=== PATIENT | male | born 1965 | race Caucasian/White ===

== ENCOUNTER 2018-04-18 10:00 | Day surgery (SDC) | payer BC ==
[~2018-04-18 10:00] MED LIST: Lactated Ringers 1,000 ML IV SCH
[2018-04-18] MEDS ORDERED: Propofol 200 MG/20 ML SDV ONE (10:44)
[2018-04-18] MEDS ORDERED: fentaNYL 100 MCG/2 ML SDV ONE (10:44)
--- NOTE | 2018-04-18 18:20 | OR ---
PREOPERATIVE DIAGNOSIS: Personal history of polyps, family history of colon cancer-sister. POSTOPERATIVE DIAGNOSIS: Normal colonoscopic exam. PROCEDURE PROPOSED/PROCEDURE DONE: Total flexible colonoscopy. INDICATIONS: This is a 53-year-old male who comes in for colonic surveillance due to a personal history of polyps and also a family history of a sister with colon cancer as well as a grandparent. His last examination was 5 years ago. TECHNIQUE: The patient was brought to the endoscopy suite and placed in left lateral decubitus position. He was sedated per [employer]ILLING [employer]IST with propofol. The flexible video colonoscope was then passed transanally and under visualization, advanced to the cecum. Examination revealed a normal ascending, transverse, descending, sigmoid, and rectal colons. There was no evidence of any polyps, diverticulosis, colitis, or other abnormalities. The scope was then withdrawn. The patient tolerated procedure well. IMPRESSION: 1. Essentially normal colonoscopic exam. 2. Family history of colon cancer. 3. History of prior polyps. PLAN: The patient should continue with colonic surveillance every 5 years hereafter. SCM: 04/18/2018 11:35:09 MODL: 04/18/2018 18:11:44 /[id number]
== END 2018-04-18 12:45 | disposition home or self-care (01) ==
LOC: VM.SDS 10:00
PROVIDERS: ATTEND Surgery
DX: Z12.11 Encounter for screening for malignant neoplasm of colon (principal); J45.909 Unspecified asthma, uncomplicated; N52.9 Male erectile dysfunction, unspecified; E78.5 Hyperlipidemia, unspecified; E66.9 Obesity, unspecified; Z68.32 Body mass index [BMI] 32.0-32.9, adult; Z79.899 Other long term (current) drug therapy; Z86.010 Personal history of colon polyps; Z80.0 Family history of malignant neoplasm of digestive organs
CPT/HCPCS: 45378; J2704; J3010; J7120

== ENCOUNTER 2019-04-07 23:30 | Emergency (ER) | payer BC ==
[2019-04-07] MEDS ORDERED: Sodium Chloride 0.9% 10 ML Syringe FLUSH PRN (23:36)
[2019-04-07] MEDS ORDERED: Albuterol/Ipratropium 3.0-0.5 MG/3 ML Neb Soln NEB ONE (23:37)
[2019-04-07] MEDS ORDERED: methylPREDNISolone Sodium Succinate 125 MG/2 ML SDV IM ONE (23:37)
[2019-04-08] MEDS ORDERED: methylPREDNISolone Sodium Succinate 125 MG/2 ML SDV IVPUSH ONE
[2019-04-08 00:17] LABS: CHLORIDE,CL 105 mmol/L (98-107); SODIUM,NA 140 mmol/L (136-145)
[2019-04-08 00:19] LABS: ANION GAP 16.8 mmol/L (10-20)
--- NOTE | 2019-04-08 08:29 | CR ---
[id number] RAD/RAD Chest PA And Lateral EXAM: FRONTAL AND LATERAL CHEST INDICATION: Syncope and bradycardia. COMPARISON: July 01, 2008. DISCUSSION: The heart and lungs are normal in appearance. IMPRESSION: 1. Negative exam. Gunner Brenner MD 04/08/19 0827 Thank you for allowing us to participate in the care of your patient.
--- NOTE | 2019-04-08 08:31 | EDM.PDOC ---
ED HPI GENERAL MEDICAL PROBLEM - General Chief Complaint: Respiratory Problem Stated Complaint: Wheezing, coughing, asthma Time Seen by Provider: 04/07/19 23:35 Source of Information: Reports: Patient, RN Notes Reviewed History Limitations: Reports: No Limitations - History of Present Illness INITIAL COMMENTS - FREE TEXT/NARRATIVE: Pt. presents to ER with complaints of wheezing and chest tightness for the past several days. He states that he has a history of asthma and is currently out of his montelucast which he thinks caused an exacerbation. Pt. states that he has been using his albuterol inhaler approx. 4-6 times daily. Denies any fever or chills. He has had a cough, but it is non-productive. Denies any chest pain. No jaw, arm, neck or back pain. Denies any fever or chills. He states that he sometimes has asthma exacerbations and he needs a steroid. He is currently not on a inhaled corticosteroid or LABA and states that he does quite well with montelucast. Onset Date: 03/29/19 Location: Reports: Chest Improves with: Reports: Rest Worsens with: Reports: Movement Treatments PROGRAM REP: Reports: Home Treatments (inhaler) - Related Data Allergies Allergy/AdvReac Type Severity Reaction Status Date / Time No Known Allergies Allergy Verified 04/07/19 23:36 Home Meds: Home Meds Albuterol [Proventil HFA] 2 puff INH Q4H PRN 04/12/18 [History] Non-Formulary Medication [NF Drug] 50 - 100 mg PO ASDIRECTED PRN 04/12/18 [ History] Polyvinyl Alcohol/Povidone/Pf [Refresh Classic Eye Drops] 1 drop OP ASDIRECTED PRN 04/12/18 [History] Cetirizine HCl [Zyrtec] 10 mg PO DAILY 04/08/19 [History] Montelukast [Singulair] 10 mg PO BEDTIME 04/08/19 [History] Past Medical History Other Cardiovascular History: vasculogenic erectile dysfunction Respiratory History: Reports: Asthma Other Gastrointestinal History: family hx colon cancer Genitourinary History: Reports: None Musculoskeletal History: Reports: Fracture Other Musculoskeletal History: LEFT ARM FX 1989 Neurological History: Reports: None Psychiatric History: Reports: None Endocrine/Metabolic History: Reports: None Hematologic History: Reports: None Immunologic History: Reports: None Other Oncologic History: STRONG FX HX OF CANCER Dermatologic History: Reports: None - Past Surgical History Other HEENT Surgeries/Procedures: presbyopia Cardiovascular Surgical History: Reports: None Endocrine Surgical History: Reports: None Neurological Surgical History: Reports: None Musculoskeletal Surgical History: Reports: None Oncologic Surgical History: Reports: None ED ROS GENERAL - Review of Systems Review Of Systems: See Below Constitutional: Reports: No Symptoms. Denies: Fever, Chills, Malaise, Weakness , Fatigue HEENT: Reports: No Symptoms Respiratory: Reports: Shortness of Breath, Wheezing, Cough Cardiovascular: Reports: No Symptoms Endocrine: Reports: No Symptoms GI/Abdominal: Reports: No Symptoms : Reports: No Symptoms Musculoskeletal: Reports: No Symptoms Skin: Reports: No Symptoms Neurological: Reports: No Symptoms Psychiatric: Reports: No Symptoms Hematologic/Lymphatic: Reports: No Symptoms Immunologic: Reports: No Symptoms ED EXAM, GENERAL - Physical Exam Exam: See Below Exam Limited By: No Limitations General Appearance: Alert, WD/WN, No Apparent Distress Eye Exam: Bilateral Eye: Conjunctival Injection Throat/Mouth: Normal Inspection, Normal Lips, Normal Teeth, Normal Gums, Normal Oropharynx, Normal Voice, No Airway Compromise Head: Atraumatic, Normocephalic Neck: Normal Inspection, Supple, Non-Tender, Full Range of Motion Respiratory/Chest: Decreased Breath Sounds, Wheezing Cardiovascular: Normal Peripheral Pulses, Regular Rate, Rhythm, No Edema, No Gallop, No JVD, No Murmur, No Rub GI/Abdominal: Normal Bowel Sounds, Soft, Non-Tender, No Organomegaly, No Distention, No Mass (Male) Exam: Deferred Rectal (Males) Exam: Deferred Back Exam: Normal Inspection, Full Range of Motion Extremities: Normal Inspection, Normal Range of Motion, Non-Tender, No Pedal Edema, Normal Capillary Refill Neurological: Alert, Oriented, CN II-XII Intact, Normal Cognition, Normal Gait, Normal Reflexes, No Motor/Sensory Deficits Psychiatric: Normal Affect, Normal Mood Skin Exam: Warm, Dry, Intact, Normal Color, No Rash Lymphatic: No Adenopathy Course - Vital Signs Last Recorded V/S: Last Vital Signs Temp 36.6 C 04/07/19 23:30 Pulse 76 04/08/19 00:30 Resp 16 04/08/19 00:30 BP 147/93 H 04/07/19 23:30 Pulse Ox 97 04/08/19 00:30 - Orders/Labs/Meds Orders: Active Orders 24 hr Category Date Time Status RT Aerosol Therapy [RC] ASDIRECTED Care 04/07/19 23:37 Active Peripheral IV Insertion Adult [OM.PC] Routine Oth 04/07/19 23:37 Ordered Labs: Laboratory Tests 04/07/19 04/07/19 04/07/19 Range/Units 23:45 23:45 23:45 WBC 5.9 (4.0-10.0) x10^3/uL RBC 5.55 (4.5-6.0) x10^6/uL Hgb 15.9 (14.0-18.0) g/dL Hct 44.4 (40.0-52.0) % MCV 80.0 (78.0-93.0) fL MCH 28.6 (26.0-32.0) pg MCHC 35.8 (32.0-36.0) g/dL RDW Coeff of Isaak 13.7 (10.0-15.0) % Plt Count 172 (130-400) x10^3/uL Neut % (Auto) 50.5 (50.0-80.0) % Lymph % (Auto) 27.9 (25.0-50.0) % [place] % (Auto) 8.6 (2.0-11.0) % Eos % (Auto) 11.1 H (0.0-4.0) % Baso % (Auto) 1.9 H (0.2-1.2) % PT 11.0 (10.0-12.8) SEC INR 1.0 L (2.0-3.5) Sodium 140 (136-145) mmol/L Potassium 3.8 (3.5-5.1) mmol/L Chloride 105 (98-107) mmol/L Carbon Dioxide 22 (21-32) mmol/L Anion Gap 16.8 (10-20) mmol/L BUN 19 H (7-18) mg/dL Creatinine 1.3 (0.70-1.30) mg/dL Est Cr Clr Drug Dosing TNP Estimated GFR (MDRD) 58 Glucose 120 H (74-106) mg/dL Calcium 8.8 (8.5-10.1) mg/dL Corrected Calcium 8.88 (8.5-10.1) mg/dL Total Bilirubin 0.5 (0.2-1.0) mg/dL AST 22 (15-37) U/L ALT 44 (16-63) U/L Alkaline Phosphatase 65 (46-116) U/L C-Reactive Protein < 0.2 (<=0.9) mg/dL Total Protein 7.1 (6.4-8.2) g/dL Albumin 3.9 (3.4-5.0) g/dL Globulin 3.2 Albumin/Globulin Ratio 1.22 Meds: Medications Discontinued Medications Generic Name Dose Route Start Last Admin Trade Name Freq PRN Reason Stop Dose Admin Albuterol/Ipratropium 3 ml 04/07/19 23:37 04/07/19 23:40 Duoneb 3.0-0.5 Mg/3 Ml NEB 04/07/19 23:38 3 ml ONETIME ONE Administration Methylprednisolone Sodium Succinate 125 mg 04/08/19 00:00 04/08/19 00:00 Solu-Medrol IVPUSH 04/08/19 00:01 125 mg ONETIME ONE Administration Sodium Chloride 10 ml 04/07/19 23:36 Saline Flush FLUSH ASDIRECTED PRN Keep Vein Open - Radiology Interpretation Free Text/Narrative:: chest x-ray is negative for acute pathology. Departure - Departure Time of Disposition: 00:41 Disposition: Home, Self-Care 01 Condition: Good Clinical Impression: Acute asthma - Discharge Information Instructions: Asthma, Adult, [id number] Referrals: PCP,Unknown [Primary Care Provider] - Forms: ED Department Discharge Additional Instructions: Prednisone 20mg 3 tabs daily for 7 days Continue with albuterol inhaler Recheck in clinic in 7-10 days Follow-up in ER if you have increased breathing troubles. - My Orders Last 24 Hours: My Active Orders 04/07/19 23:37 RT Aerosol Therapy [RC] ASDIRECTED Peripheral IV Insertion Adult [OM.PC] Routine - Assessment/Plan Last 24 Hours: My Active Orders 04/07/19 23:37 RT Aerosol Therapy [RC] ASDIRECTED Peripheral IV Insertion Adult [OM.PC] Routine Plan: Prednisone 20mg 3 tabs daily for 7 days Continue with albuterol inhaler Recheck in clinic in 7-10 days Follow-up in ER if you have increased breathing troubles.
== END 2019-04-08 00:41 | disposition home or self-care (01) ==
LOC: VM.ED 23:30
DX: J45.901 Unspecified asthma with (acute) exacerbation (principal); Z79.899 Other long term (current) drug therapy
CPT/HCPCS: 71046; 80053; 85025; 85610; 86140; 94640; 96374; 99285; J2930; J7620-GY

== ENCOUNTER 2023-05-25 12:53 | Day surgery (SDC) | payer BC ==
[2023-05-25] MEDS ORDERED: fentaNYL 100 MCG/2 ML SDV ONE (12:55)
[2023-05-25] MEDS ORDERED: Propofol 200 MG/20 ML SDV ONE ×2 (12:55→14:35)
== END 2023-05-25 16:02 | disposition home or self-care (01) ==
LOC: VM.SDS 12:53
PROVIDERS: ATTEND Family Medicine
DX: Z12.11 Encounter for screening for malignant neoplasm of colon (principal); D12.0 Benign neoplasm of cecum; K63.5 Polyp of colon; K62.1 Rectal polyp; K57.30 Diverticulosis of large intestine without perforation or abscess without bleeding; J45.909 Unspecified asthma, uncomplicated; N52.9 Male erectile dysfunction, unspecified; E66.01 Morbid (severe) obesity due to excess calories; Z80.0 Family history of malignant neoplasm of digestive organs; Z79.899 Other long term (current) drug therapy; Z68.34 Body mass index [BMI] 34.0-34.9, adult
CPT/HCPCS: 00812; 45380; 45385; J2704; J3010; J7120

== ENCOUNTER 2024-06-06 10:15 | Day surgery (SDC) | payer BC ==
[2024-06-06] MEDS: Lactated Ringers 1,000 ML IV SCH (10:34)
[2024-06-06] MEDS ORDERED: Propofol 200 MG/20 ML SDV ONE (10:51)
[2024-06-06] MEDS ORDERED: fentaNYL 100 MCG/2 ML SDV ONE (10:51)
== END 2024-06-06 13:32 | disposition home or self-care (01) ==
LOC: VM.SDS 10:15
PROVIDERS: ATTEND Family Medicine
DX: Z12.11 Encounter for screening for malignant neoplasm of colon (principal); D12.6 Benign neoplasm of colon, unspecified; K57.30 Diverticulosis of large intestine without perforation or abscess without bleeding; Z86.0100 Personal history of colon polyps, unspecified; Z80.0 Family history of malignant neoplasm of digestive organs; I10 Essential (primary) hypertension; J45.20 Mild intermittent asthma, uncomplicated; E66.9 Obesity, unspecified; Z68.34 Body mass index [BMI] 34.0-34.9, adult
CPT/HCPCS: J2704; J3010; J7120